=== PATIENT | female | born 1940 | race Caucasian/White ===

== ENCOUNTER 2024-04-21 17:12 | Emergency (ER) | payer MEDICARE, SELFPAY ==
--- NOTE | 2024-04-21 17:26 | ED_ITS ---
HPI - General Adult General Chief complaint: Urogenital-Female Stated complaint: UTI? Was treated feels like it is still there Time Seen by Provider: 04/21/24 19:12 Source: RN notes reviewed and old records reviewed History of Present Illness ED Provider: Keely Baron PA-C [facility] narrative: 84-year-old female with past medical history of AFib, recurrent UTIs, presenting to the ED complaining of I believe I have a UTI w/ urinary pressure and dysuria. Also reports white discharge a few days ago, denies at present. Patient reports history frequent UTIs, finish course of antibiotics a few days ago which was prescribed by PCP. States usually goes to [facility]. Denies abdominal pain, flank pain, fever, nausea/vomiting, discharge at present Onset (ago): day(s) Related Data Previous Rx's ?Medication ?Instructions ?Recorded cefuroxime axetil 250 mg tablet 250 mg PO BID 7 days #14 tabs 04/21/24 Allergies Allergy/AdvReac Type Severity Reaction Status Date / Time No Known Allergies Allergy Verified 04/21/24 17:47 Review of Systems 2 Review of Systems: Constitutional: No Fever, No Chills ENT/Mouth: No Ear Pain, No Nasal Congestion Cardiovascular: No Chest Pain, No SOB Respiratory: No Cough, No Sputum, No Wheezing Gastrointestinal: No Nausea, No Vomiting, No Diarrhea, No Constipation,+ Abdominal pain Genitourinary: + Dysuria, No Urinary Frequency, No Hematuria, No Urgency, No Flank Pain Musculoskeletal: No joint pain Skin: No Skin Lesions, No rash Neuro: No Weakness Yes all other systems are reviewed and are negative Constitutional: Constitutional: Reports as per [facility] Past Medical History Attestation statement: The following information was validated with the patient. Source: old records reviewed Social History Social History Advance Directives: No Advance Directives Information Provided: No Physical Exam ED Vital Signs: Vital Signs - 24 hr 04/21/24 17:45 Temperature 98.1 F Pulse Rate 107 H Respiratory Rate 18 Blood Pressure 123/73 Pulse Oximetry 96 Oxygen Delivery Method Room Air BMI result Body Mass Index 40.7 Const General: cooperative, healthy appearing and no acute distress Orientation/consciousness: patient oriented x3 Limitations: no limitations HENMT Head: Yes normal to inspection and Yes atraumatic Ears: hearing grossly normal bilaterally General nose exam: Normal external nose present Face and sinus: Yes normal facial exam Eyes General: appearance normal, both eyes and all related structures EOM: EOMs intact bilaterally Neck Neck: Yes normal visual inspection and Yes no meningeal signs Resp Effort & Inspection: normal respiratory effort and no respiratory distress Auscultation: clear to auscultation bilaterally Cardio Rate: regular rate Heart sounds: S1 normal heart sound present and S2 normal heart sound present GI Inspection: Yes normal to inspection Palpation (GI): Soft to palpation, nontender, no guarding and not rigid Skin Rashes: no rashes Wounds: no wounds Neuro General: patient oriented x3, tone normal and no meningeal signs Cranial nerves: Yes CN's II-XII intact bilaterally Gait exam (Neuro): Normal gait present Extrem General: Yes normal to inspection Course Course Course Narrative: This is a Rapid Medical Exam performed in triage by Keely Baron PA-C. Full HPI, ROS and PE to be performed by primary ED provider. 84 year-old F w/ PMHx A.fib presenting to the ED c/o I believe I have a UTI c/o urinary pressure and discharge. patient w/frequent UTI's, finished Abx's few days ago for UTI Rx by PCP. denies abdominal pain, flank pain, fever PE: nontoxic appearing, in wheelchair. patient will need to be straight cathed Plan: Labs, UA, straight cath -no leukocytosis. BUN elevated, no priors to compare -UA infected will initiate patient on Ceftin b.i.d. 1st dose given in the ED Results discussed with patient including worrisome signs and symptoms and strict return precautions, and when to return to the emergency department. They verbalized understanding and feel safe for discharge at this time. Medical Decision Making Medical Decision Making [facility] Narrative: 84-year-old female with past medical history of AFib, recurrent UTIs, presenting to the ED complaining of I believe I have a UTI w/ urinary pressure and dysuria. On exam mildly tachycardic, NAD, nontoxic appearing, abdomen soft/nontender. Concern for UTI. Lower suspicion for diverticulitis, appendicitis, renal stone/pyelo or severe sepsis at this time. Low suspicion for STI, TOA Plan: Labs, UA/straight cath Please refer to course for remaining clinical decision making, interpretation of labs/imaging results, and discussions with consultants and/or family members. Differential Diagnosis Differential Diagnoses: The differential diagnosis associated with the presentation includes As above Admission/Observation Consideration of admission/observation: Escalation of care including admission/observation considered Lab Data MDM Lab Attestation statement: I reviewed the patient's lab results. 04/21/24 18:26 04/21/24 18:26 Labs: Lab Results 04/21/24 04/21/24 Range/Units 18:26 19:04 WBC 10.8 (4.8-10.8) X10*3/uL RBC 4.17 L (4.20-5.50) X10*6/uL Hgb 13.5 (12.0-16.0) g/dl Hct 39.7 (37.0-47.0) % MCV 95.2 (80.0-98.0) fL MCH 32.4 (27.0-33.0) pg MCHC 34.0 (31.0-35.0) g/dl RDW 13.2 (11.0-16.0) % Plt Count 207 (160-400) X10*3/uL MPV 9.4 (9.4-12.3) fL Immature Gran % (Auto) 0.6 H (0.0-0.4) % Neut % (Auto) 78.6 H (45-73) % Lymph % (Auto) 12.7 L (20-40) % Osborne % (Auto) 6.7 (2-11) % Eos % (Auto) 1.1 (0-4) % Baso % (Auto) 0.3 (0-2) % Lymph # (Auto) 1.4 (1.2-4.9) X10*3/uL Osborne # (Auto) 0.7 (0.1-1.2) X10*3/uL Eos # (Auto) 0.1 (0.0-0.4) X10*3/uL Baso # (Auto) 0.0 (0.0-0.2) X10*3/uL Abs Immat Gran (auto) 0.06 H (0.00-0.03) X10*3/uL Absolute Neuts (auto) 8.5 H (2.0-8.3) x10*3/uL Absolute Nucleated RBC 0.000 (0.0-0.012) X10*3/uL Nucleated RBC % (auto) 0.0 (0.0-0.2) /100WBC Sodium 141 (135-145) mmol/L Potassium 3.6 (3.3-5.1) mmol/L Chloride 104 (96-108) mmol/L Carbon Dioxide 25 (22-29) mmol/L Anion Gap 16 (12-20) BUN 35 H (9-16) mg/dL Creatinine 1.38 (0.5-1.4) mg/dL Estim Creat Clear Calc 41.7 Estimated GFR 36 Random Glucose 167 H (60-115) mg/dL Calcium 9.4 (8.4-10.2) mg/dL Urine Color Yellow Urine Appearance Turbid Urine pH >= 9.0 (5.0-9.0) Ur Specific [place] 1.020 (1.005-1.025) Urine Protein 100 (2+) H (Neg-Trace) mg/dL Urine Glucose (UA) Negative (Negative) mg/dL Urine Ketones Negative (Negative) mg/dL Urine Blood Negative (Negative) Urine Nitrite Positive H (Negative) Ur Leukocyte Esterase Large (3+) H (Negative) Urine RBC 3-5 H (0-2) /HPF Urine WBC >50 H (0-5) /HPF Ur Squamous Epith Cells 0-2 (0-2) /HPF Urine Bacteria 4+ (None Seen) Hyaline Casts 3-5 (0-2) /LPF Radiology Impression Discussion of test interpretation with radiology: I have reviewed the radiologist's reading. Independent Historian Clinical information obtained from an independent historian. History obtained from or confirmed by: Other (daughter) External Record Review External record reviewed: Inpatient record, Office record, Outpatient record, Prior outpatient labs, Prior outpatient radiology, Primary care record and Outside ED record Tests considered The following testing was considered but not selected: As above Prescription Management I considered prescription management with: Pain Medication and Antibiotic Discharge Plan Discharge Clinical Impression: Urinary tract infection Patient Disposition: Home, Self-Care Instructions: Urinary Tract Infection in Women (DC) Additional Instructions: You have a urinary tract infection, Ceftin is an antibiotic please take as prescribed Please have close follow-up with her doctor If symptoms persist or worsen return to the ED Prescriptions: New cefuroxime axetil 250 mg tablet 250 mg PO BID 7 Days Qty: 14 0RF Referrals: [facility] [Provider Group] Ashutosh Crowley MD [Primary Care Provider] - 3 days Print Language: Irish
[2024-04-21 17:45] VITALS: BP 123/73; PULSE 107; RESP 18; TEMP 36.7; O2SAT 96; BMI 40.7
[2024-04-21 18:30] LABS: MANUAL DIFF FLAG NO
[2024-04-21 18:32] LABS: Basophils Percent Auto 0.3 % (0-2); Eosinophils Absolute Auto 0.1 X10*3/uL (0.0-0.4); Eosinophils Percent Auto 1.1 % (0-4); Hematocrit 39.7 % (37.0-47.0); Hemoglobin 13.5 g/dl (12.0-16.0); Imm Gran Abs Auto 0.06 X10*3/uL (0.00-0.03); Imm Gran Pct Auto 0.6 % (0.0-0.4); Lymphocytes Absolute Auto 1.4 X10*3/uL (1.2-4.9); Lymphocytes Percent Auto 12.7 % (20-40); Mean Corpuscular Hemoglobin 32.4 pg (27.0-33.0); Mean Corpuscular Volume 95.2 fL (80.0-98.0); Mean Platelet Volume 9.4 fL (9.4-12.3); Monocytes Absolute Auto 0.7 X10*3/uL (0.1-1.2); Monocytes Percent Auto 6.7 % (2-11); Neutrophils Absolute Auto 8.5 x10*3/uL (2.0-8.3); Neutrophils Percent Auto 78.6 % (45-73); Platelet Count 207 X10*3/uL (160-400); Red Blood Count 4.17 X10*6/uL (4.20-5.50); Red Cell Distribution Width 13.2 % (11.0-16.0); White Blood Count 10.8 X10*3/uL (4.8-10.8)
[2024-04-21 18:44] LABS: Anion Gap 16 (12-20); Blood Urea Nitrogen 35 mg/dL (9-16); Calcium 9.4 mg/dL (8.4-10.2); Carbon Dioxide 25 mmol/L (22-29); Chloride 104 mmol/L (96-108); Creatinine Clr Calc Pharmacy 41.7; Estimated Glomerular Filt Rate 36; Glucose Random 167 mg/dL (60-115); Potassium 3.6 mmol/L (3.3-5.1); Sodium 141 mmol/L (135-145)
[2024-04-21 19:13] LABS: Appearance Urine Turbid; Color Urine Yellow; Glucose Urine UA Negative (Negative); Leukocyte Esterase Urine Large (3+) (Negative); Nitrite Urine Positive (Negative); PH >= 9.0 (5.0-9.0); UMIC TRIGGER UACC YES; Urine Blood Negative (Negative); Urine Ketones Negative (Negative); Urine Protein 100 (2+) mg/dL (Neg-Trace)
[2024-04-21 19:23] LABS: Bacteria Urine 4+ (None Seen); Squamous Epithelial Cell Urine 0-2 /HPF (0-2); UACC Culture Trigger YES; WBC Urine >50 /HPF (0-5)
[2024-04-21] MEDS: cefuroxime axetiL 250 MG TABLET PO (19:48)
[2024-04-21 19:55] VITALS: BP 148/77; PULSE 99; RESP 17; TEMP 36.3; O2SAT 95
[2024-04-21 20:04] VITALS: BP 148/77; PULSE 99; RESP 17; TEMP 36.3; O2SAT 95
== END 2024-04-21 20:05 | disposition home or self-care (01) ==
PROVIDERS: Physician Assistant; Emergency Provider Emergency Medicine; PCP Internal Medicine
DX: N39.0 Urinary tract infection, site not specified (principal); B96.4 Proteus (mirabilis) (morganii) as the cause of diseases classified elsewhere; Z87.440 Personal history of urinary (tract) infections
CPT/HCPCS: 36415; 51701; 80048; 81001; 85025; 87086; 87088; 87186; 99283; 99284

== ENCOUNTER 2024-07-07 22:06 | Emergency (ER) | payer MEDICARE, SELFPAY ==
[2024-07-07 22:13] VITALS: BP 124/71; PULSE 109; RESP 16; TEMP 36.1; O2SAT 96; BMI 41.3
[2024-07-07 22:59] VITALS: BP 150/72; PULSE 100; RESP 16; TEMP 36.9; O2SAT 95
--- NOTE | 2024-07-08 02:45 | ED.EYEPROB ---
HPI - Eye Problem General Chief complaint: Eye Problems Stated complaint: bilateral eyes burning Time Seen by Provider: 07/08/24 02:31 Source: patient Mode of arrival: ambulatory Limitations: no limitations History of Present Illness ED Provider: jose f SHEARER Narrative: Patient complaining of redness both eyes with sent feeling since earlier today no vision loss no upper respiratory symptoms Related Data Previous Rx's ?Medication ?Instructions ?Recorded cefuroxime axetil 250 mg tablet 250 mg PO BID 7 days #14 tabs 04/21/24 tobramycin 0.3 % eye drops 2 drp ophthalmic (eye) Q4H #5 mL 07/08/24 Allergies Allergy/AdvReac Type Severity Reaction Status Date / Time cefuroxime Allergy Nausea Verified 07/07/24 22:19 Review of Systems Review of Systems: Yes all other systems are reviewed and are negative [facility] Social History Social History Smoked in Last 30 Days: No Use of substances other than those prescribed or required for medical reasons: No Advance Directives: No Physical Exam Vital Signs: Vital Signs: Last Vital Signs Temp 98.6 F 07/08/24 03:30 Pulse 85 07/08/24 03:30 Resp 19 07/08/24 03:30 BP 163/73 H 07/08/24 03:30 Pulse Ox 95 07/08/24 03:30 O2 Del Method Room Air 07/08/24 03:30 BMI result Body Mass Index 41.3 Appearance: Alert. Oriented X3. No acute distress. HEENT: Inflamed conjunctiva bilaterally clear discharge AC normal Pharynx normal. Oral Mucosa moist Neck: Normal inspection. Neck supple. CVS: Normal heart rate and rhythm. Pulses normal. Respiratory: No respiratory distress. Equal air entry bilateral, no wheezing/rales/rhonchi Skin: Skin warm and dry. Normal skin color. Normal skin turgor. Extremities: No lower extremity edema. Neuro: Oriented X 3. Medications Administered Discontinued Medications Generic Name Dose Route Start Last Admin Trade Name Freq PRN Reason Stop Dose Admin Tobramycin Sulfate 2 drop 07/08/24 02:44 07/08/24 02:59 Tobramycin Sulfate 0.3% Yolanda Op 5 Ml Btl EYE-BOTH 07/08/24 02:45 2 drop ONCE ONE Administration Medical Decision Making Medical Decision Making [facility] Narrative: Patient with conjunctivitis will prescribe tobramycin Discharge Plan Discharge Clinical Impression: Bacterial conjunctivitis Patient Disposition: Home, Self-Care Instructions: Conjunctivitis (ED) Additional Instructions: Use tobramycin eye drops 2 drops every 4 hours till clear as advised Follow with PCP if any concerns Prescriptions: New tobramycin 0.3 % drops 2 drp ophthalmic (eye) Q4H Qty: 5 0RF No Action cefuroxime axetil 250 mg tablet 250 mg PO BID 7 Days Qty: 14 0RF Interventions: ED Discharge Assessment Last Done: 07/08/24 03:30 Discharge Date/Time: 07/08/24 03:31 Print Language: Azeri
[2024-07-08] MEDS: Tobramycin Sulfate 0.3% Sol Op 5 ML BTL 2 DROP EYE-BOTH (02:59)
[2024-07-08 03:30] VITALS: BP 163/73; PULSE 85; RESP 19; TEMP 37; O2SAT 95
== END 2024-07-08 03:31 | disposition home or self-care (01) ==
PROVIDERS: Emergency Provider Internal Medicine; PCP Internal Medicine
DX: H10.33 Unspecified acute conjunctivitis, bilateral (principal); H57.13 Ocular pain, bilateral
CPT/HCPCS: 99283; 99284